=== PATIENT | female | born 1990 | race African-American/Black ===

== ENCOUNTER 2020-07-08 22:11 | Observation (INO) ==
[2020-07-08 23:35] LABS: Basophils % 0.3 % (0.0-0.8); Eosinophils # 0.2 10*3/uL (0.0-0.87); Eosinophils % 1.6 % (0.00-10.9); Hematocrit 36.6 VOL% (35.7-47.0); Hemoglobin 12.1 GM/DL (12.0-16.0); Immature Granulocytes % 0.3 %; Immature Granulocytes Absolute 0.03 #; Lymphocytes # 2.9 10*3/uL (1.4-4.0); Lymphocytes % 30.7 % (21.3-54.2); Mean Corpuscular HGB Conc 33.1 GM/DL (32-36); Mean Corpuscular Volume 77.9 FL (87-102); Mean Platelet Volume 11.7 FL (9.6-12.0); Neutrophils % 61.1 % (38.7-73.9); Platelet Count 212 T/CUMM (130-400); Red Cell Distribution Width 15.3 % (9.3-17.3); White Blood Count 9.3 T/CUMM (4-12)
[2020-07-08 23:57] LABS: Alanine Aminotransferase 48 U/L (13-56); Albumin 3.7 G/DL (3.4-5.0); Alkaline Phosphatase 62 U/L (45-117); Aspartate Amino Transferase 34 U/L (0-37); Bilirubin,Total < 0.39 MG/DL (0.2-1.0); Blood Urea Nitrogen 11 MG/DL (7-18); Calcium 8.3 MG/DL (8.5-10.1); Estimated Glom Filtration Rate 95 ML/MIN; Glucose 84 MG/DL (74-106); Osmolality,Calculated 272.7 MOS/KG (273-304); Total Protein 7.4 G/DL (6.4-8.3)
[2020-07-09] MEDS ORDERED: DEXTROSE 5% LACTATED RINGERS 1,000 ML IV SCH (00:30)
[2020-07-09] MEDS ORDERED: FAMOTIDINE 20 MG/2 ML VIAL IV SCH (00:30)
[2020-07-09] MEDS ORDERED: ONDANSETRON 4 MG/2 ML VIAL IV PRN ×2 (00:30→10:19)
[2020-07-09 01:24] LABS: Hypochromasia 2+; Platelet Estimate Normal
[2020-07-09] MEDS ORDERED: LACTATED RINGERS 1,000 ML IV SCH (02:30)
[2020-07-09] MEDS: oxyCODONE/ACETAMINOPHEN 5-325 MG TABLET PO PRN ×2 (02:53→14:22)
[2020-07-09] MEDS ORDERED: FAMOTIDINE 20 MG TABLET PO ONE (07:45)
[2020-07-09] MEDS ORDERED: ALBUTEROL 2.5 MG/3 ML NEB RESP TX ONE (07:45)
[2020-07-09] MEDS ORDERED: DIAZEPAM 5 MG TABLET PO ONE (07:45)
[2020-07-09] MEDS ORDERED: ROCURONIUM 50 MG/5 ML VIAL IV ONE (08:23)
[2020-07-09] MEDS ORDERED: fentaNYL 100 MCG/2 ML VIAL ONE ×2 (08:23→09:22)
[2020-07-09] MEDS ORDERED: LIDOCAINE 2% 5 ML VIAL ONE (08:23)
[2020-07-09] MEDS ORDERED: propofoL 200 MG/20 ML VIAL IV ONE (08:23)
[2020-07-09] MEDS ORDERED: MIDAZOLAM 2 MG/2 ML VIAL ONE (08:23)
[2020-07-09] MEDS ORDERED: ceFAZolin 1,000 MG VIAL ONE (09:15)
[2020-07-09] MEDS ORDERED: NEOSTIGMINE 10 MG/10 ML VIAL ONE (09:58)
[2020-07-09] MEDS ORDERED: GLYCOPYRROLATE 0.4 MG/2 ML VIAL ONE (09:58)
[2020-07-09] MEDS ORDERED: PROMETHAZINE INJ 25 MG in SODIUM CHLORIDE 0.9% 50 ML IV PRN (10:19)
[2020-07-09] MEDS ORDERED: ONDANSETRON 4 MG/2 ML VIAL ONE (10:19)
[2020-07-09] MEDS ORDERED: DEXAMETHASONE 4 MG/1 ML VIAL ONE (10:19)
[2020-07-09] MEDS ORDERED: HYDROmorphone 2 MG/1 ML VIAL IV PRN (10:19)
[2020-07-09] MEDS ORDERED: diphenhydrAMINE 50 MG/1 ML VIAL IV PRN (10:19)
[2020-07-09] MEDS ORDERED: MEPERIDINE 25 MG/1 ML VIAL ONE (10:27)
[2020-07-09] MEDS: MEPERIDINE 50 MG/1 ML VIAL IV PRN ×2 (10:30→11:40)
[2020-07-09 16:03] VITALS: BP 107/66
== END 2020-07-09 15:30 | disposition home or self-care (01) ==
LOC: N.EDINP 22:11 → N.ED 22:11 → N.OB 23:55
PROVIDERS: ADMIT Obstetrics & Gynecology; ATTEND Obstetrics & Gynecology